=== PATIENT | female | born 1975 ===

== ENCOUNTER 2025-07-01 13:33 | Outpatient (CLI) | payer BC, OTHER | END 2025-07-01 13:34 | disposition home or self-care (01) | LOC: BICMAMMO 13:33 | PROVIDERS: ATTEND Family Medicine | DX: Z12.31 Encounter for screening mammogram for malignant neoplasm of breast (principal); N64.89 Other specified disorders of breast; R92.333 Mammographic heterogeneous density, bilateral breasts | CPT/HCPCS: 77063; 77067 ==